=== PATIENT | male | born 1985 | race Hispanic/Latino ===

== ENCOUNTER 2019-03-14 17:34 | Observation (INO) | payer MEDICAID, OTHER ==
[2019-03-14 17:35] VITALS: BMI 31.8
[2019-03-14] MEDS ORDERED: TDAP Vaccine 0.5 mL Syr IM ONE (18:29)
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
[2019-03-15] MEDS ORDERED: Oxycodone/Acetaminophen 5/325 mg Tab PO STA (01:19)
[2019-03-15 02:14] LABS: EOS # 0.2 (0.0-0.7); EOS % 1.3 % (1.5-5.0)
[2019-03-15 02:15] LABS: ALB/GLOB RATIO 1.1 (1.1-1.8); ALBUMIN 4.4 g/dL (3.0-4.8); ALT/SGPT 23 U/L (7-56); AST/SGOT 42 U/L (17-59); BLOOD UREA NITROGEN 10 mg/dL (7-21); CALCIUM 9.4 mg/dL (8.4-10.5); GFR NON-AFRICAN AMERICAN > 60
[2019-03-15 04:06] LABS: WHITE BLOOD COUNT 16.6 10^3/uL (4.5-11.0)
[2019-03-15 04:07] LABS: HEMOGLOBIN 14.5 g/dL (14.0-18.0); RBC 4.49 10^6/uL (3.5-6.1)
[2019-03-15 04:08] LABS: MEAN CORPUSCULAR HEMOGLOBIN 32.3 pg (25.0-35.0)
[2019-03-15 04:09] LABS: MEAN PLATELET VOLUME 9.8 fl (7.0-11.0); RED CELL DISTRIBUTION WIDTH 15.1 % (11.5-14.5)
[2019-03-15 04:10] LABS: BASO % 0.3 % (0.0-3.0); LYMPH % 14.4 % (22.0-35.0); MONO % 6.8 % (1.0-6.0)
[2019-03-15 04:11] LABS: BASO # 0.05 K/mm3 (0.0-2.0); LYMPH # 2.4 (1.2-3.4); MONO # 1.1 (0.1-0.6)
[2019-03-15 04:13] LABS: MEAN CELL VOLUME 93.1 fl (80.0-105.0)
[2019-03-15 04:14] LABS: MEAN CORPUSCULAR HGB CONC 34.7 g/dl (31.0-37.0)
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
[2019-03-15] MEDS ORDERED: Oxycodone/Acetaminophen 5/325 mg Tab PO PRN (04:57)
[2019-03-15 07:44] VITALS: BP 122/74; PULSE 79; RESP 20; TEMP 98; O2SAT 95
[2019-03-15 08:08] LABS: ALB/GLOB RATIO 1.2 (1.1-1.8); ALBUMIN 4.1 g/dL (3.0-4.8); ALT/SGPT 22 U/L (7-56); AST/SGOT 32 U/L (17-59); BLOOD UREA NITROGEN 12 mg/dL (7-21); CALCIUM 9.1 mg/dL (8.4-10.5); GFR NON-AFRICAN AMERICAN > 60
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
[2019-03-15 10:26] LABS: BASO # 0.05 K/mm3 (0.0-2.0); BASO % 0.4 % (0.0-3.0); EOS # 0.4 (0.0-0.7); EOS % 3.1 % (1.5-5.0); HEMOGLOBIN 13.8 g/dL (14.0-18.0); LYMPH # 2.1 (1.2-3.4); LYMPH % 17.6 % (22.0-35.0); MEAN CELL VOLUME 92.4 fl (80.0-105.0); MEAN CORPUSCULAR HEMOGLOBIN 30.9 pg (25.0-35.0); MEAN CORPUSCULAR HGB CONC 33.5 g/dl (31.0-37.0); MEAN PLATELET VOLUME 9.4 fl (7.0-11.0); MONO % 8.3 % (1.0-6.0); RBC 4.46 10^6/uL (3.5-6.1); RED CELL DISTRIBUTION WIDTH 15.3 % (11.5-14.5); WHITE BLOOD COUNT 12.1 10^3/uL (4.5-11.0)
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
--- NOTE | 2019-03-15 10:31 | CT ---
Date of service: 03/14/2019 PROCEDURE: CT Cervical Spine without contrast HISTORY: abnormal ct on facial bones study COMPARISON: None available. TECHNIQUE: Axial computed tomography images were obtained of the cervical spine without the use of intravenous contrast. Coronal and sagittal reformatted images were created and reviewed. Radiation dose: Total exam DLP = 570.38 mGy-cm. This CT exam was performed using one or more of the following dose reduction techniques: Automated exposure control, adjustment of the mA and/or kV according to patient size, and/or use of iterative reconstruction technique. FINDINGS: VERTEBRAE: No fracture. Normal alignment. No destructive bony lesion. DISCS/SPINAL CANAL/NEURAL FORAMINA: No significant central canal or neural foraminal stenosis. Discs heights are grossly preserved. PARASPINAL SOFT TISSUES: Unremarkable. OTHER FINDINGS: The [facility] report indicated a possible transverse fracture of the dens. I believe this represents a normal variation and does not represent a fracture. IMPRESSION: Unremarkable CT of the cervical spine.
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
== END 2019-03-15 13:50 | disposition home or self-care (01) ==
LOC: ED 17:34 → ERH 03-15 01:19 → 5RNO 03-15 02:44
PROVIDERS: ADMIT Internal Medicine; ATTEND Internal Medicine
DX: S12.110A Anterior displaced Type II dens fracture, initial encounter for closed fracture (principal); S01.81XA Laceration without foreign body of other part of head, initial encounter; Y04.0XXA Assault by unarmed brawl or fight, initial encounter; M54.10 Radiculopathy, site unspecified; M21.372 Foot drop, left foot; G89.29 Other chronic pain; D72.829 Elevated white blood cell count, unspecified; F17.210 Nicotine dependence, cigarettes, uncomplicated; Z23 Encounter for immunization
CPT/HCPCS: 36415; 70450; 70486; 72125; 80053; 83735; 84100; 85025; 90471; 90715; 96374; 99284; G0378; J1885